=== PATIENT | male | born 1975 | race African-American/Black ===

== ENCOUNTER 2017-03-09 12:38 | Inpatient (IN) | payer SELFPAY ==
[2017-03-09] VITALS (8 sets, daily range): BP systolic 103–134; BP diastolic 56–72; PULSE 90–100; RESP 15–18; TEMP 100.4–103; O2SAT 93–96
[2017-03-09] MEDS ORDERED: SODIUM CHLOR 0.9% 1000 ML INJ 1,000 ML IV ONE (13:00)
[2017-03-09] MEDS ORDERED: ACETAMINOPHEN 325 MG TAB PO ONE (13:00)
--- NOTE | 2017-03-09 13:38 | RADRPT ---
EXAM DATE/TIME: 03/09/2017 13:30 [facility] COMPARISON: No previous studies available for comparison. INDICATIONS : Weakness. Fever. RADIATION DOSE: 37.13 CTDIvol (mGy) MEDICAL HISTORY : None SURGICAL HISTORY : None. ENCOUNTER: Initial ACUITY: 3 days PAIN SCALE: 0/10 LOCATION: cranial TECHNIQUE: Multiple contiguous axial images were obtained of the head. Using automated exposure control and adj ustment of the mA and/or kV according to patient size, radiation dose was kept as low as reasonably a chievable to obtain optimal diagnostic quality images. DICOM format image data is available electro nically for review and comparison. FINDINGS: CEREBRUM: The ventricles are normal for age. No evidence of midline shift, mass lesion, hemorrhage or acute in farction. No extra-axial fluid collections are seen. POSTERIOR FOSSA: The cerebellum and brainstem are intact. The 4th ventricle is midline. The cerebellopontine angle i s unremarkable. EXTRACRANIAL: The visualized portion of the orbits is intact. SKULL: The calvaria is intact. No evidence of skull fracture. CONCLUSION: Negative for acute process. Jeremiah Perea MD FACR on March 09, 2017 at 13:36 Board Certified Radiologist. This report was verified electronically.
[2017-03-09 13:47] LABS: AUTOMATED NEUTROPHIL # 6.3 TH/MM3 (1.8-7.7); BASOPHIL % 0.3 % (0.0-2.0); EOSINOPHIL # 0.1 TH/MM3 (0-0.4); EOSINOPHIL % 1.9 % (0.0-4.0); HEMATOCRIT 42.5 % (39.0-51.0); HEMOGLOBIN 14.3 GM/DL (13.0-17.0); LYMPH % 3.3 % (9.0-44.0); LYMPHOCYTE # 0.2 TH/MM3 (1.0-4.8); MEAN CELL VOLUME 86.8 FL (80.0-100.0); MEAN CORPUSCULAR HEMOGLOBIN 29.2 PG (27.0-34.0); MEAN CORPUSCULAR HGB CONC 33.6 % (32.0-36.0); MEAN PLATELET VOLUME 8.5 FL (7.0-11.0); MONO % 5.4 % (0.0-8.0); MONOCYTE # 0.4 TH/MM3 (0-0.9); NEUT % 89.1 % (16.0-70.0); PLATELET COUNT 153 TH/MM3 (150-450); RED CELL DISTRIBUTION WIDTH 14.9 % (11.6-17.2)
--- NOTE | 2017-03-09 13:53 | PD ---
HPI Chief Complaint: Cold / Flu Symptoms Time Seen by Provider: 12:45 Travel History International Travel<30 days: No Contact w/Intl Traveler<30days: No Traveled to known affect area: No History of Present Illness HPI 42-year-old male that presents to the ED for evaluation of cold-like symptoms and fever. Per patient she's had this for about 4 days now. Per patient he progressively getting worse and she is having body aches. The patient is also having joint pain and specifically the main joints including the chest, shoulders, elbows, wrists, knees, hips and ankles. Patient denies any history of this in the past. He is also noted that he's had a rash that is high be in nature on the torso and back with the same duration of symptoms. He also states having a stiff neck. He denies any sick contacts. He states having had all his exudations as a child. He isn't taking anything for the fever today. He was seen at urgent care and had a flu test that was negative and was sent here for evaluation of possible myositis. He denies any other medical issues. Per patient the rash itself is itchy and not painful. Per patient he discomfort at the time is 7 out of 10 but mainly of the joints. All throughout. No history of this in the past. No other medical problems reported. No recent travel or foods. Nothing that could elicit the rash. PFSH Past Medical History Medical History: Denies Significant Hx Diminished Hearing: No Tetanus Vaccination: > 5 Years Influenza Vaccination: Yes Past Surgical History Surgical History: No Previous Surgery Social History Alcohol Use: No Tobacco Use: No Substance Use: No Allergies-Medications (Allergen,Severity, Reaction): Coded Allergies: No Known Allergies (Unverified , 03/09/17) Reported Meds & Prescriptions Reported Meds & Active Scripts Active No Active Prescriptions or Reported Medications Review of Systems Except as stated in HPI: all other systems reviewed are Neg Physical Exam Narrative GENERAL: SKIN: Warm and dry. Patient has a high be looking rash that is blanchable and pruritic on the chest and torso. Not really noted anywhere else. HEAD: Atraumatic. Normocephalic. EYES: Pupils equal and round. No scleral icterus. No injection or drainage. ENT: No nasal bleeding or discharge. Mucous membranes pink and moist. Tongue is midline. No uvula deviation. No lymphadenopathy noted. Patient does have some reproducible pain with movement of the neck especially from the chin to the chest. No other meningeal signs noted. Tonsils are not enlarged or swollen. Nostrils are patent bilaterally with some mucus noted. NECK: Trachea midline. No JVD. CARDIOVASCULAR: Regular rate and rhythm. No murmurs, S3, S4. RESPIRATORY: No accessory muscle use. Clear to auscultation. Breath sounds equal bilaterally. GASTROINTESTINAL: Abdomen soft, non-tender, nondistended. Hepatic and splenic margins not palpable. MUSCULOSKELETAL: Extremities without clubbing, cyanosis, or edema. No obvious deformities. Full range of motion of the upper and lower extremities bilaterally. 2+ pulses bilaterally. NEUROLOGICAL: Awake and alert. No obvious cranial nerve deficits. Motor grossly within normal limits. Five out of 5 muscle strength in the arms and legs. Normal speech. PSYCHIATRIC: Appropriate mood and affect; insight and judgment normal. Data Data Last Documented VS Vital Signs Date Time Temp Pulse Resp B/P (MAP) Pulse Ox O2 Delivery O2 Flow Rate FiO2 03/09/17 14:25 102.8 95 16 95 Room Air Orders Orders Complete Blood Count With Diff (03/09/17 12:55) Basic Metabolic Panel (Bmp) (03/09/17 12:55) Blood Culture (03/09/17 12:55) Urinalysis - C+S If Indicated (03/09/17 12:55) Magnesium (Mg) (03/09/17 12:55) Group A Rapid Strep Screen (03/09/17 12:55) Influenzae A/B Antigen (03/09/17 12:55) Chest, Single Ap (03/09/17 12:55) Ct Brain W/O Iv Contrast(Rout) (03/09/17 12:55) Iv Access Insert/Monitor (03/09/17 12:55) Ecg Monitoring (03/09/17 12:55) Oximetry (03/09/17 12:55) Lactic Acid Sepsis Protocol (03/09/17 12:55) Acetaminophen (Tylenol) (03/09/17 13:00) Sodium Chlor 0.9% 1000 Ml Inj (Ns 1000 M (03/09/17 13:00) Monoscreen (03/09/17 13:47) Coag Profile (03/09/17 13:47) Strep Culture (Group A) (03/09/17 13:20) Ceftriaxone Inj (Rocephin Inj) (03/09/17 15:00) Azithromycin Inj (Zithromax Inj) (03/09/17 15:00) Admit Order (Ed Use Only) (03/09/17 15:43) Labs Laboratory Tests Test 03/09/17 13:20 03/09/17 13:30 03/09/17 13:50 03/09/17 14:15 White Blood Count 7.0 TH/MM3 Red Blood Count 4.90 MIL/MM3 Hemoglobin 14.3 GM/DL Hematocrit 42.5 % Mean Corpuscular Volume 86.8 FL Mean Corpuscular Hemoglobin 29.2 PG Mean Corpuscular Hemoglobin Concent 33.6 % Red Cell Distribution Width 14.9 % Platelet Count 153 TH/MM3 Mean Platelet Volume 8.5 FL Neutrophils (%) (Auto) 89.1 % Lymphocytes (%) (Auto) 3.3 % Monocytes (%) (Auto) 5.4 % Eosinophils (%) (Auto) 1.9 % Basophils (%) (Auto) 0.3 % Neutrophils # (Auto) 6.3 TH/MM3 Lymphocytes # (Auto) 0.2 TH/MM3 Monocytes # (Auto) 0.4 TH/MM3 Eosinophils # (Auto) 0.1 TH/MM3 Basophils # (Auto) 0.0 TH/MM3 CBC Comment DIFF FINAL Differential Comment Blood Urea Nitrogen 15 MG/DL Creatinine 1.55 MG/DL Random Glucose 95 MG/DL Calcium Level 8.3 MG/DL Magnesium Level 1.7 MG/DL Sodium Level 132 MEQ/L Potassium Level 4.0 MEQ/L Chloride Level 101 MEQ/L Carbon Dioxide Level 24.4 MEQ/L Anion Gap 7 MEQ/L Estimat Glomerular Filtration Rate 60 ML/MIN Lactic Acid Level 1.3 mmol/L Prothrombin Time 11.3 SEC Prothromb Time International Ratio 1.1 RATIO Activated Partial Thromboplast Time 29.2 SEC Monoscreen NEG Urine Color YELLOW Urine Turbidity CLEAR Urine pH 5.5 Urine Specific [place] 1.007 Urine Protein NEG mg/dL Urine Glucose (UA) NEG mg/dL Urine Ketones NEG mg/dL Urine Occult Blood NEG Urine Nitrite NEG Urine Bilirubin NEG Urine Urobilinogen LESS THAN 2.0 MG/DL Urine Leukocyte Esterase NEG Urine WBC 1 /hpf Microscopic Urinalysis Comment CULT NOT INDICATED MDM Medical Decision Making Medical Screen Exam Complete: Yes Emergency Medical Condition: Yes Medical Record Reviewed: Yes Interpretation(s) CBC & BMP Diagram 03/09/17 13:20 Calcium Level 8.3 L, Magnesium Level 1.[address] 03/09/17 1255 Signed Impressions: Service Date/Time: Thursday, March 09, 2017 13:30 - CONCLUSION: Negative for acute process. Jeremiah Perea MD FACR Chest X-Ray 03/09/17 1255 Signed Impressions: Service Date/Time: Thursday, March 09, 2017 13:16 - CONCLUSION: Right midlung airspace disease. Fidel Hernández MD strep negative mono negative UA negative lactic WNL Differential Diagnosis Strep throat versus mononucleosis versus meningitis versus viral illness versus sepsis versus influenza versus pneumonia versus fever of unknown source versus normal exam Narrative Course 42-year-old male that presents to the ED for evaluation of fever and joint pain. Patient was properly examined and was found to have signs and symptoms consistent with appears to be fever. Unclear etiology at this time with definite concern for meningitis. My attending Dr. Agosto as well as the patient with me and agrees with plan. She recommends getting CT of the head as well as coags this patient will require LP which she agreed to proceed with. We 'll wait for labs and imaging before doing the LP however. Patient was given Tylenol for the pain and high fever. Labs and imaging showed what appears to be pneumonia. Patient still has a high fever. My attending Dr. Agosto evaluated the patient with me and recommends admission for pneumonia. HEPAS was paged. Dr Kilgore agrees to admission. Sepsis Criteria SIRS Criteria (2 or more): Temp > 100.9 or < 96.8, Heart rate over 90 Sepsis Criteria (SIRS+source): Infect source susp/known Criteria Outcome: Meets sepsis criteria Diagnosis Primary Impression: Pneumonia Qualified Codes: J18.1 - Lobar pneumonia, unspecified organism Additional Impression: Sepsis Qualified Codes: A41.9 - Sepsis, unspecified organism Admitting Information Admitting Physician Requests: Admit Scripts No Active Prescriptions or Reported Meds Raleigh Hartman Mar 09, 2017 13:53
--- NOTE | 2017-03-09 14:13 | RADRPT ---
EXAM DATE/TIME: 03/09/2017 13:16 [facility] COMPARISON: No previous studies available for comparison. INDICATIONS : Fever, chills, shortness of breath. MEDICAL HISTORY : None. SURGICAL HISTORY : None. ENCOUNTER: Initial ACUITY: 3 days PAIN SCORE: 8/10 LOCATION: Bilateral chest FINDINGS: A single view of the chest demonstrates bandlike airspace disease in the right midlung Left lung is clear. Heart and mediastinal structures are unremarkable. CONCLUSION: Right midlung airspace disease. Fidel Hernández MD on March 09, 2017 at 14:10 Board Certified Radiologist. This report was verified electronically.
[2017-03-09 14:14] LABS: BICARBONATE 24.4 MEQ/L (21.0-32.0); CALCIUM 8.3 MG/DL (8.5-10.1); CREATININE 1.55 MG/DL (0.60-1.30); MAGNESIUM 1.7 MG/DL (1.5-2.5)
[2017-03-09 14:29] LABS: INTERNATIONAL NORMALIZED RATIO 1.1 RATIO; PROTHROMBIN TIME - PATIENT 11.3 SEC (9.8-11.6)
[2017-03-09 14:34] LABS: MONOSCREEN NEG (NEG)
[2017-03-09 14:36] LABS: BILIRUBIN, URINE NEG (NEG); BLOOD, URINE NEG (NEG); GLUCOSE,URINE NEG (NEG); KETONE, URINE NEG (NEG); NITRITE,URINE NEG (NEG); PH, URINE 5.5 (5.0-8.5); URINE COLOR YELLOW (YELLW/STRAW); URINE LEUKOCYTE ESTERASE NEG (NEG)
[2017-03-09] MEDS ORDERED: cefTRIAXone INJ 1,000 MG in SODIUM CHLORIDE 0.9% INJ 100 ML IV ONE (15:00)
[2017-03-09] MEDS ORDERED: AZITHROMYCIN INJ 500 MG in SODIUM CHLOR 0.9% 250 ML INJ 250 ML IV ONE (15:00)
[2017-03-09] MEDS ORDERED: KETOROLAC TROMETHAMINE 30 MG/ML (IVP) VIAL IV PUSH ONE (16:30)
[2017-03-09] MEDS: SODIUM CHLOR 0.9% 1000 ML INJ 1,000 ML IV SCH (16:48)
[2017-03-09] MEDS ORDERED: AZITHROMYCIN INJ 500 MG in SODIUM CHLOR 0.9% 250 ML INJ 250 ML IV SCH (17:00)
[2017-03-09] MEDS ORDERED: cefTRIAXone INJ 1,000 MG in SODIUM CHLORIDE 0.9% INJ 100 ML IV SCH (17:00)
[2017-03-09] MEDS ORDERED: SODIUM CHLORIDE 0.9% FLUSH 10 ML FLUSH IV FLUSH PRN (17:00)
[2017-03-09] MEDS ORDERED: guaiFENesin/DEXTROMETHORPHAN 200 MG/20 MG/10 ML CUP PO PRN (17:00)
[2017-03-09] MEDS ORDERED: RESP: ALBUTEROL 2.5 MG/IPRATROPIUM 0.5 MG NEB (PRN) INH (17:00)
[2017-03-09] MEDS ORDERED: ONDANSETRON HCL 4 MG/2 ML VIAL IV PUSH PRN (17:00)
--- NOTE | 2017-03-09 17:38 | PD ---
Physical Exam Date Seen by Provider: Mar 09, 2017 Time Seen by Provider: 16:30 Narrative I'm seeing this patient with Raleigh Hartman PA-C. This is a patient that presents with cold and flu symptoms. He was initially seen at an urgent care with a did an influenza test and sent him here because he had continued fever and a rash. The patient reports body aches and myalgias. The patient also has a temperature of 103.. There are no ill contacts. There are no mental status changes. Data Data Last Documented VS Vital Signs Date Time Temp Pulse Resp B/P (MAP) Pulse Ox O2 Delivery O2 Flow Rate FiO2 03/09/17 14:25 102.8 95 16 95 Room Air Orders Orders Complete Blood Count With Diff (03/09/17 12:55) Basic Metabolic Panel (Bmp) (03/09/17 12:55) Blood Culture (03/09/17 12:55) Urinalysis - C+S If Indicated (03/09/17 12:55) Magnesium (Mg) (03/09/17 12:55) Group A Rapid Strep Screen (03/09/17 12:55) Influenzae A/B Antigen (03/09/17 12:55) Chest, Single Ap (03/09/17 12:55) Ct Brain W/O Iv Contrast(Rout) (03/09/17 12:55) Iv Access Insert/Monitor (03/09/17 12:55) Ecg Monitoring (03/09/17 12:55) Oximetry (03/09/17 12:55) Lactic Acid Sepsis Protocol (03/09/17 12:55) Acetaminophen (Tylenol) (03/09/17 13:00) Sodium Chlor 0.9% 1000 Ml Inj (Ns 1000 M (03/09/17 13:00) Monoscreen (03/09/17 13:47) Coag Profile (03/09/17 13:47) Strep Culture (Group A) (03/09/17 13:20) Ceftriaxone Inj (Rocephin Inj) (03/09/17 15:00) Azithromycin Inj (Zithromax Inj) (03/09/17 15:00) Admit Order (Ed Use Only) (03/09/17 15:43) Labs Laboratory Tests Test 03/09/17 13:20 03/09/17 13:30 03/09/17 13:50 03/09/17 14:15 White Blood Count 7.0 TH/MM3 Red Blood Count 4.90 MIL/MM3 Hemoglobin 14.3 GM/DL Hematocrit 42.5 % Mean Corpuscular Volume 86.8 FL Mean Corpuscular Hemoglobin 29.2 PG Mean Corpuscular Hemoglobin Concent 33.6 % Red Cell Distribution Width 14.9 % Platelet Count 153 TH/MM3 Mean Platelet Volume 8.5 FL Neutrophils (%) (Auto) 89.1 % Lymphocytes (%) (Auto) 3.3 % Monocytes (%) (Auto) 5.4 % Eosinophils (%) (Auto) 1.9 % Basophils (%) (Auto) 0.3 % Neutrophils # (Auto) 6.3 TH/MM3 Lymphocytes # (Auto) 0.2 TH/MM3 Monocytes # (Auto) 0.4 TH/MM3 Eosinophils # (Auto) 0.1 TH/MM3 Basophils # (Auto) 0.0 TH/MM3 CBC Comment DIFF FINAL Differential Comment Blood Urea Nitrogen 15 MG/DL Creatinine 1.55 MG/DL Random Glucose 95 MG/DL Calcium Level 8.3 MG/DL Magnesium Level 1.7 MG/DL Sodium Level 132 MEQ/L Potassium Level 4.0 MEQ/L Chloride Level 101 MEQ/L Carbon Dioxide Level 24.4 MEQ/L Anion Gap 7 MEQ/L Estimat Glomerular Filtration Rate 60 ML/MIN Lactic Acid Level 1.3 mmol/L Prothrombin Time 11.3 SEC Prothromb Time International Ratio 1.1 RATIO Activated Partial Thromboplast Time 29.2 SEC Monoscreen NEG Urine Color YELLOW Urine Turbidity CLEAR Urine pH 5.5 Urine Specific [place] 1.007 Urine Protein NEG mg/dL Urine Glucose (UA) NEG mg/dL Urine Ketones NEG mg/dL Urine Occult Blood NEG Urine Nitrite NEG Urine Bilirubin NEG Urine Urobilinogen LESS THAN 2.0 MG/DL Urine Leukocyte Esterase NEG Urine WBC 1 /hpf Microscopic Urinalysis Comment CULT NOT INDICATED MDM Medical Record Reviewed: Yes Supervised Visit with HARRY: Yes Narrative Course 42-year-old male presents with fever body aches rash headache. Patient also had mild stiff neck. The patient is nontoxic-appearing. Initially the concern was this could be meningitis. We did send off a repeat influenza, mono, strep test which were all negative. Chest x-ray reveals a right middle lobe infiltrate. The patient's white blood cell count was within normal limits. This likely could be a viral pneumonia however we will admit him to the hospital for IVD antibiotics and fever control. Case was discussed with both patient and his and they're amenable. Given his rash, this likely is viral in etiology. At this point a lumbar puncture is not indicated. Diagnosis Primary Impression: Pneumonia Qualified Codes: J18.1 - Lobar pneumonia, unspecified organism Additional Impression: Sepsis Qualified Codes: A41.9 - Sepsis, unspecified organism Admitting Information Admitting Physician Requests: Admit Scripts No Active Prescriptions or Reported Meds Adryan Agosto MD Mar 09, 2017 17:38
[2017-03-09] MEDS ORDERED: ACETAMINOPHEN/HYDROcodone 325 MG/5 MG TAB PO PRN (18:45)
[2017-03-09] MEDS: HEPARIN SODIUM - SQ 10,000 UNITS/ML VIAL SQ SCH (19:15)
--- NOTE | 2017-03-09 19:38 | HHI.HP ---
[facility] No Primary Care Physician Admission Diagnosis acute pneumonia, sepsis Diagnoses: Chief Complaint: Fever and skin rash Travel History International Travel<30 Days: No Contact w/Intl Traveler <30 Da: No Traveled to Known Affected Are: No History of Present Illness 42 years old patient admitted with flulike symptoms fever and papular rash on the chest and the back, patient went to urgent care he was check for flu which was negative he also reported body aching and myalgia no change in mental status is fever was 103 documented here in ED patient denied chest in coughing headache blurry vision, nausea vomiting diarrhea, dysuria urgency or frequency, he denied recent traveling or sick contacts Past Family Social History Past Medical History Denied any medical history Past Surgical History Denied previous surgery Allergies: Coded Allergies: No Known Allergies (Unverified , 03/09/17) Family History Reviewed unremarkable Social History Denied tobacco alcohol or illicit drug abuse Physical Exam Vital Signs Vital Signs Date Time Temp Pulse Resp B/P (MAP) Pulse Ox O2 Delivery O2 Flow Rate FiO2 03/09/17 18:00 101.5 100 17 103/56 (72) 95 03/09/17 17:16 103.0 101 16 130/72 (91) 96 03/09/17 16:59 94 21 03/09/17 16:21 103.0 98 15 134/70 (91) 96 Room Air 03/09/17 14:25 102.8 95 16 95 Room Air 03/09/17 14:25 102.8 92 16 96 Room Air 03/09/17 12:53 15 99 Room Air 03/09/17 12:40 103.0 96 16 122/68 (86) 95 Physical Exam GENERAL: This is a well-nourished, well-developed patient, in no apparent distress. SKIN: None itching papular rash some of it has pustular look, also distributed on the back HEAD: Atraumatic. Normocephalic. EYES: Pupils equal round and reactive. Extraocular motions intact. No scleral icterus. ENT: Nose without bleeding, or drainage, Airway patent. NECK: Trachea midline. Supple CARDIOVASCULAR: Regular rate and rhythm without murmurs, gallops, or rubs. RESPIRATORY: Fair air entry bilaterally. No wheezes, rales, or rhonchi. GASTROINTESTINAL: Abdomen soft, non-tender, nondistended. Positive bowel sounds MUSCULOSKELETAL: Extremities without clubbing, cyanosis, or edema. Pedal pulses appreciated NEUROLOGICAL: Awake and alert. Moves all extremity. Normal speech.no focal neurological deficit Laboratory Laboratory Tests Test 03/09/17 13:20 03/09/17 13:30 03/09/17 13:50 03/09/17 14:15 White Blood Count 7.0 Red Blood Count 4.90 Hemoglobin 14.3 Hematocrit 42.5 Mean Corpuscular Volume 86.8 Mean Corpuscular Hemoglobin 29.2 Mean Corpuscular Hemoglobin Concent 33.6 Red Cell Distribution Width 14.9 Platelet Count 153 Mean Platelet Volume 8.5 Neutrophils (%) (Auto) 89.1 Lymphocytes (%) (Auto) 3.3 Monocytes (%) (Auto) 5.4 Eosinophils (%) (Auto) 1.9 Basophils (%) (Auto) 0.3 Neutrophils # (Auto) 6.3 Lymphocytes # (Auto) 0.2 Monocytes # (Auto) 0.4 Eosinophils # (Auto) 0.1 Basophils # (Auto) 0.0 CBC Comment DIFF FINAL Differential Comment Blood Urea Nitrogen 15 Creatinine 1.55 Random Glucose 95 Calcium Level 8.3 Magnesium Level 1.7 Sodium Level 132 Potassium Level 4.0 Chloride Level 101 Carbon Dioxide Level 24.4 Anion Gap 7 Estimat Glomerular Filtration Rate 60 Lactic Acid Level 1.3 Prothrombin Time 11.3 Prothromb Time International Ratio 1.1 Activated Partial Thromboplast Time 29.2 Monoscreen NEG Urine Color YELLOW Urine Turbidity CLEAR Urine pH 5.5 Urine Specific [place] 1.007 Urine Protein NEG Urine Glucose (UA) NEG Urine Ketones NEG Urine Occult Blood NEG Urine Nitrite NEG Urine Bilirubin NEG Urine Urobilinogen LESS THAN 2.0 Urine Leukocyte Esterase NEG Urine WBC 1 Microscopic Urinalysis Comment CULT NOT INDICATED Date/Time Source Procedure Growth Status 03/09/17 13:30 Blood Peripheral Aerobic Blood Culture Pending Received 03/09/17 13:30 Blood Peripheral Anaerobic Blood Culture Pending Received 03/09/17 14:00 Nasal Washing Influenza Types A,B Antigen ([facility]) - Final NEGATIVE FOR FLU A AND B ANTIGEN.... Complete Result Diagram: 03/09/17 1320 03/09/17 1320 Imaging Last Impressions Liver Ultrasound 03/10/17 0000 Signed Impressions: Service Date/Time: Friday, March 10, 2017 12:35 - CONCLUSION: Negative study Kaleb Hirsch MD Head CT 03/09/17 1255 Signed Impressions: Service Date/Time: Thursday, March 09, 2017 13:30 - CONCLUSION: Negative for acute process. Jeremiah Perea MD FACR Chest X-Ray 03/09/17 1255 Signed Impressions: Service Date/Time: Thursday, March 09, 2017 13:16 - CONCLUSION: Right midlung airspace disease. Fidel Hernández MD Caprini VTE Risk Assessment Caprini VTE Risk Assessment: No/Low Risk (score <= 1) Caprini Risk Assessment Model Point Value = 1 Point Value = 2 Point Value = 3 Point Value = 5 Age 41-60 Minor surgery BMI > 25 kg/m2 Swollen legs Varicose veins or History of unexplained or recurrent spontaneous Oral contraceptives or hormone replacement Sepsis (< 1 month) Serious lung disease, including pneumonia (< 1 month) Abnormal pulmonary function Acute myocardial infarction Congestive heart failure (< 1 month) History of inflammatory bowel disease Medical patient at bed rest Age 61-74 Arthroscopic surgery Major open surgery (> 45 min) Laparoscopic surgery (> 45 min) Malignancy Confined to bed (> 72 hours) Immobilizing plaster cast Central venous access Age >= 75 History of VTE Family history of VTE Factor V Leiden Prothrombin [id number] Lupus anticoagulant Anticardiolipin antibodies Elevated serum homocysteine Heparin-induced thrombocytopenia Other congenital or acquired thrombophilia Stroke (< 1 month) Elective arthroplasty Hip, pelvis, or leg fracture Acute spinal cord injury (< 1 month) Prophylaxis Regimen Total Risk Factor Score Risk Level Prophylaxis Regimen 0-1 Low Early ambulation 2 Moderate Order ONE of the following: *Sequential Compression Device (SCD) *Heparin 5000 units SQ BID 3-4 Higher Order ONE of the following medications: *Heparin 5000 units SQ TID *Enoxaparin/Lovenox 40 mg SQ daily (WT < 150 kg, CrCl > 30 mL/min) *Enoxaparin/Lovenox 30 mg SQ daily (WT < 150 kg, CrCl > 10-29 mL/min) *Enoxaparin/Lovenox 30 mg SQ BID (WT < 150 kg, CrCl > 30 mL/min) AND/OR *Sequential Compression Device (SCD) 5 or more Highest Order ONE of the following medications: *Heparin 5000 units SQ TID (Preferred with Epidurals) *Enoxaparin/Lovenox 40 mg SQ daily (WT < 150 kg, CrCl > 30 mL/min) *Enoxaparin/Lovenox 30 mg SQ daily (WT < 150 kg, CrCl > 10-29 mL/min) *Enoxaparin/Lovenox 30 mg SQ BID (WT < 150 kg, CrCl > 30 mL/min) AND *Sequential Compression Device (SCD) Assessment and Plan Assessment and Plan 42 years old male with admitted with Febrile illness with skin rash max 103, chest x-ray showed right middle lobe airspace disease, no significant respiratory symptoms, plan was to do LP in ED until the result of the chest x- ray came, started on Rocephin and Zithromax, will continue and monitor Patient has no leukocytosis but positive left shift, will check ESR CRP, lactic acid flu screening was negative, will monitor his clinical course. Febrile illness with skin rash possibly due to pneumonia rule out other etiology Right sided pneumonia on x-ray Left shift JULIAN DVT prophylaxis Plan: Admit on telemetry rule out sepsis Sent for panculture Urine antigen for Legionella and pneumococcus Start Rocephin and Zithromax Breathing treatment as needed ESR CRP Reviewed x-ray personally Monitor skin rash on the clinical symptoms VT prophylaxis with heparin and SCD Physician Certification 2 Midnight Certification Type: Admission for Inpatient Services Order for Inpatient Services The services are ordered in accordance with Medicare regulations or non- Medicare payer requirements, as applicable. In the case of services not specified as inpatient-only, they are appropriately provided as inpatient services in accordance with the 2-midnight benchmark. Estimated LOS (days): 2 days is the estimated time the patient will need to remain in the hospital, assuming treatment plan goals are met and no additional complications. Post-Hospital Plan: Not yet determined Virgil Kilgore MD Mar 09, 2017 19:38
[2017-03-09] MEDS: SODIUM CHLORIDE 0.9% FLUSH 10 ML FLUSH IV FLUSH SCH (21:00)
[2017-03-09] MEDS: RESP: ALBUTEROL 2.5 MG/IPRATROPIUM 0.5 MG NEB (SCH) INH (21:26)
[2017-03-10] VITALS (11 sets, daily range): BP systolic 114–135; BP diastolic 61–73; PULSE 90–110; RESP 18–20; TEMP 98.9–103.5; O2SAT 91–97
[2017-03-10] MEDS: ACETAMINOPHEN 325 MG TAB PO PRN ×4 (00:32→21:23)
[2017-03-10] MEDS: HEPARIN SODIUM - SQ 10,000 UNITS/ML VIAL SQ SCH ×3 (00:32→16:17)
[2017-03-10] MEDS: SODIUM CHLOR 0.9% 1000 ML INJ 1,000 ML IV SCH ×3 (02:43→21:24)
[2017-03-10] MEDS: RESP: ALBUTEROL 2.5 MG/IPRATROPIUM 0.5 MG NEB (SCH) INH ×3 (03:07→21:33)
[2017-03-10] MEDS: ACETAMINOPHEN/HYDROcodone 325 MG/7.5 MG TAB PO PRN ×2 (07:48→13:05)
[2017-03-10] MEDS: SODIUM CHLORIDE 0.9% FLUSH 10 ML FLUSH IV FLUSH SCH ×2 (07:49→21:22)
[2017-03-10] MEDS ORDERED: cefTRIAXone INJ 1,000 MG in SODIUM CHLORIDE 0.9% INJ 100 ML IV SCH (09:00)
[2017-03-10] MEDS ORDERED: AZITHROMYCIN INJ 500 MG in SODIUM CHLOR 0.9% 250 ML INJ 250 ML IV SCH (09:00)
[2017-03-10 09:12] LABS: AUTOMATED NEUTROPHIL # 5.6 TH/MM3 (1.8-7.7); BASOPHIL % 0.1 % (0.0-2.0); EOSINOPHIL # 0.2 TH/MM3 (0-0.4); EOSINOPHIL % 2.4 % (0.0-4.0); HEMATOCRIT 36.1 % (39.0-51.0); HEMOGLOBIN 12.6 GM/DL (13.0-17.0); LYMPH % 2.6 % (9.0-44.0); LYMPHOCYTE # 0.2 TH/MM3 (1.0-4.8); MEAN CELL VOLUME 85.1 FL (80.0-100.0); MEAN CORPUSCULAR HEMOGLOBIN 29.7 PG (27.0-34.0); MEAN CORPUSCULAR HGB CONC 34.9 % (32.0-36.0); MEAN PLATELET VOLUME 8.3 FL (7.0-11.0); MONO % 5.9 % (0.0-8.0); MONOCYTE # 0.4 TH/MM3 (0-0.9); PLATELET COUNT 133 TH/MM3 (150-450); RED BLOOD COUNT 4.24 MIL/MM3 (4.50-5.90); RED CELL DISTRIBUTION WIDTH 14.3 % (11.6-17.2); WHITE BLOOD COUNT 6.3 TH/MM3 (4.0-11.0)
[2017-03-10 09:32] LABS: ALBUMIN 2.6 GM/DL (3.4-5.0)
[2017-03-10 09:35] LABS: DIRECT BILIRUBIN ADULT 0.7 MG/DL (0.0-0.2); INDIRECT BILIRUBIN 1.4 MG/DL (0.0-0.8); TOTAL BILIRUBIN ADULT 2.1 MG/DL (0.2-1.0); TOTAL PROTEIN 6.4 GM/DL (6.4-8.2)
[2017-03-10 12:45] LABS: BICARBONATE 20.2 MEQ/L (21.0-32.0); C-REACTIVE PROTEIN 9.1 MG/DL (0.00-0.30); CALCIUM 7.7 MG/DL (8.5-10.1); CREATININE 1.43 MG/DL (0.60-1.30)
--- NOTE | 2017-03-10 13:31 | RADRPT ---
EXAM DATE/TIME: 03/10/2017 12:35 [facility] COMPARISON: No previous studies available for comparison. EXTERNAL COMPARISON : [facility], CT Abdomen and Pelvis, December 25, 2016 INDICATIONS : Abnormal lab values. MEDICAL HISTORY : Renal disease. SURGICAL HISTORY : None. ENCOUNTER: Initial ACUITY: 1 day PAIN SCORE: 0/10 LOCATION: Abdomen. MEASUREMENTS: LIVER: 13.5 cm length COMMON DUCT: 5 mm RIGHT KIDNEY: 9.7 x 4.1 x 4.1 cm SPLEEN: 6.4 cm length FINDINGS: LIVER: Normal echotexture without focal lesion or ductal dilatation. COMMON DUCT: No intraluminal mass or stone visualized. GALLBLADDER: Contains no stones, demonstrates no wall thickening or pericholecystic fluid. PANCREAS: The visualized portions are within normal limits. RIGHT KIDNEY: No hydronephrosis, stone or mass. SPLEEN: No focal lesion. CONCLUSION: Negative study Kaleb Hirsch MD on March 10, 2017 at 13:28 Board Certified Radiologist. This report was verified electronically.
[2017-03-10] MEDS ORDERED: PIPERACIL-TAZO 4.5 GM PREMIX 100 ML IV SCH (14:00)
--- NOTE | 2017-03-10 15:47 | HHI.PR ---
Subjective Remarks Patient has been still running fever, between 100 101 He feels chills, no significant cough no headache no blurry vision, no diarrhea Bilirubin came elevated today, no significant clinical jaundice, I will check ultrasound of the liver and carefully monitor his temperature, I will add Zosyn and consult ID Objective Vitals Vital Signs Date Time Temp Pulse Resp B/P (MAP) Pulse Ox O2 Delivery O2 Flow Rate FiO2 03/10/17 12:00 98.9 90 18 115/63 (80) 96 03/10/17 10:16 95 Nasal Cannula 1.00 03/10/17 08:19 99.7 110 94 03/10/17 08:16 94 3.00 03/10/17 08:00 102.1 100 20 135/73 (93) 93 03/10/17 04:29 99.7 109 18 120/61 (80) 93 03/10/17 03:09 95 03/10/17 02:10 100.2 03/10/17 00:00 102.5 105 18 121/64 (83) 94 03/09/17 21:26 93 21 03/09/17 20:00 100.4 90 18 107/61 (76) 95 03/09/17 18:00 101.5 100 17 103/56 (72) 95 03/09/17 17:16 103.0 101 16 130/72 (91) 96 03/09/17 16:59 94 21 03/09/17 16:21 103.0 98 15 134/70 (91) 96 Room Air I/O 03/09/17 03/09/17 03/09/17 03/10/17 03/10/17 03/10/17 07:00 15:00 23:00 07:00 15:00 23:00 Intake Total 1000 ml 410 ml 1000 ml Balance 1000 ml 410 ml 1000 ml Intake Oral 60 ml IV Total 1000 ml 350 ml 1000 ml # Voids 0 1 # Bowel Movements 0 Result Diagram: 03/10/17 0850 03/10/17 0850 Objective Remarks GENERAL: This is a well-nourished, well-developed patient, in no apparent distress. SKIN: Multiple rounded creatinine at this papular skin rash no clearance anywhere, feeling uncomfortable on the chest on the back and some on the upper arms HEAD: Atraumatic. Normocephalic. EYES: Pupils equal round and reactive. Extraocular motions intact. No scleral icterus. ENT: Nose without bleeding, or drainage, Airway patent. NECK: Trachea midline. Supple CARDIOVASCULAR: Regular rate and rhythm without murmurs, gallops, or rubs. RESPIRATORY: Fair air entry bilaterally. No wheezes, rales, or rhonchi. GASTROINTESTINAL: Abdomen soft, non-tender, nondistended. Positive bowel sounds MUSCULOSKELETAL: Extremities without clubbing, cyanosis, or edema. Pedal pulses appreciated NEUROLOGICAL: Awake and alert. Moves all extremity. Normal speech.no focal neurological deficit A/P Assessment and Plan 42 years old male with admitted with Febrile illness with skin rash max 103, chest x-ray showed right middle lobe airspace disease, no significant respiratory symptoms, plan was to do LP in ED until the result of the chest x- ray came, started on Rocephin and Zithromax, will continue and monitor Patient has no leukocytosis but positive left shift, will check ESR CRP, lactic acid flu screening was negative, will monitor his clinical course. Febrile illness with skin rash possibly due to right sided pneumonia Right sided pneumonia on chest x-ray Increased bilirubin and AST Left shift JULIAN DVT prophylaxis Plan: Check liver ultrasound>> came back negative Add Zosyn, consult ID, we may need to check LP, Follow blood culture Start Rocephin and Zithromax Breathing treatment as needed ESR CRP Reviewed x-ray personally Monitor skin rash on the clinical symptoms VT prophylaxis with heparin and SCD Virgil Kilgore MD Mar 10, 2017 15:47
[2017-03-10] MEDS ORDERED: POTASSIUM CHLORIDE 20 MEQ CONTROLLED RELEASE TAB PO ONE (16:00)
[2017-03-10 18:08] LABS: RHEUMATOID FACTOR SCREEN POSITIVE (NEGATIVE)
[2017-03-10] MEDS: VANCOMYCIN INJ 1,000 MG in SODIUM CHLOR 0.9% 250 ML INJ 250 ML IV SCH (18:49)
--- NOTE | 2017-03-10 20:23 | MB ---
cc: LENO LAINEZ MD DATE OF CONSULTATION 03/10/[address] Kilgore. REASON FOR CONSULTATION Nonresolving fever. HISTORY OF PRESENT ILLNESS This is a 42-year-old black male who presented to the emergency department with cold and flu-like symptoms and persistent fever. The patient reports to me that he started developing achiness of his body all over and then noticed a rash including his legs and abdomen and arms and back which began approximately 4 days ago. The patient spent Toney day away from family members because he was feeling sick. He does not recall being in contact with anyone who has had similar illness. He states that he was having persistent high fever and joint aches and pains. He was seen at Urgent Care facility prior to coming to the emergency department and influenza was done and it was negative. He was noted to have temperature of 102.8 degrees in the emergency department. He denies headache. Denies nausea or vomiting. No sore throat, back pain, dysuria. He notes that he has mild shortness of breath. Chest x-ray was performed and showed right midlung airspace disease. The patient denies cough or sputum production. He was started on IV antibiotics broad-spectrum. Blood cultures from 03/09 have no growth. He was given IV antibiotics yesterday in the form of ceftriaxone and azithromycin. He was also started on piperacillin / tazobactam today. The patient denies any genital discharge. He is . He denies risk factors for HIV disease. He has two children at home and is in a monogamous relationship with his . His maximum temperature was 103 degrees yesterday afternoon. His temperature improved a little and then is back up to 103 degrees now. His white count is normal. Platelet count is low. Liver function tests normal. Urinalysis was performed and is unremarkable. The patient has an erythematous maculopapular rash which is raised and appears as small bumps. It has a slightly purpuric appearance. There are no vesicles but they are very tiny, white pustules on some of the raised bumps. It is diffuse over the back, trunk, arms, legs and chest. There are no lesions on the palm of the hands or soles of the feet. The patient reports that he has had chickenpox in childhood and that he has had all of his childhood immunizations when he was an . The patient denies exposure to unusual pets. He has not traveled outside of [place] lately. He denies tick bites or other insect bites. PAST MEDICAL HISTORY Chicken pox in childhood otherwise unremarkable. ALLERGIES NO KNOWN DRUG ALLERGIES. MEDICATIONS 1. Piperacillin / tazobactam. 2. Ceftriaxone. 3. Azithromycin. 4. Tylenol. 5. DuoNeb. SOCIAL HISTORY The patient is . No tobacco, no alcohol. No illicit drugs. He has two children age 1 and 8 who are in good health. FAMILY HISTORY Noncontributory. REVIEW OF SYSTEMS Pertinents mentioned above in history of present illness. CONSTITUTIONAL: Significant for fever and occasional chills. HEENT: No visual blurring or diplopia. No difficulty swallowing or soreness of the throat. No nasal bleeding or discharge. NECK: No swelling or pain. CARDIOVASCULAR: No palpitation or chest pain. RESPIRATORY: No cough. Mild shortness of breath. GASTROINTESTINAL: No nausea, vomiting, abdominal pain or diarrhea. GENITOURINARY: Denies urgency, frequency or dysuria. MUSCULOSKELETAL: Significant for muscle aches diffusely and also joint aches diffusely. INTEGUMENTARY: Significant for skin rash. NEUROLOGIC: No problem with coordination. PSYCHIATRIC: No mood changes or problems with depression. PHYSICAL EXAMINATION GENERAL: This is a well-developed male who is in no acute distress but he feels uncomfortable from the fever. VITAL SIGNS: Include temperature 103, BP 115/63, heart rate 100, respirations 20. HEENT: The head is atraumatic. Extraocular movements grossly intact, pupils reactive to light. No icterus. Oropharynx moist mucosa. No thrush. No visible lesions. NECK: Supple without adenopathy. LUNGS: Clear breath sounds with slight rhonchi at the bases. HEART: Regular S1-S2. No murmurs, rubs or gallops. ABDOMEN: Bowel sounds present, soft, no tenderness appreciated. No palpable hepatosplenomegaly. RECTAL: Not performed. EXTREMITIES: No clubbing, cyanosis or edema. SKIN: Diffuse maculopapular rash involving the legs, arms, abdomen, pack and chest and neck. NEUROLOGIC: No gross focal findings. PSYCHIATRIC: The patient calm and cooperative. LABORATORY DATA WBC 6.3, platelets 133, hemoglobin 12.6, 89% neutrophils. Sed rate 36. AST 31, ALT 39, total bilirubin 2.1, BUN 14, creatinine 1.43, estimated GFR 66, sodium 137. [place] screen negative. Group A strep antigen screen negative. IMPRESSION Febrile illness with diffuse erythematous rash accompanied by joint aches and muscle aches and pains. Patient with persistent elevation in temperature. Probable viral syndrome versus autoimmune etiology versus post infectious rash and arthritis. The patient also has some renal insufficiency which could be related to post infectious cause as well. He has normal white blood cell count. Abnormal chest x-ray although no clinical evidence of pneumonia and he has had negative influenza test as well. RECOMMENDATIONS 1. Discontinue ceftriaxone. 2. Discontinue piperacillin / tazobactam. 3. Discontinue azithromycin. 4. Begin vancomycin. Sometimes the use of cephalosporins or beta lactam drugs can exacerbate rash due to viral etiology illnesses. 5. Monitor blood cultures. 6. Monitor sputum culture which has been obtained. 7. Obtain LORETA, RF, streptolysin antibody titer. Culture of the pustules from the skin lesions on the back. These are very tiny but can be swabbed for culture. 8. Add Solu-Medrol given the extent of the rash and potential for autoimmune cause and also order RPR titer. Thank you for this consultation. The patient's progress will be monitored along with you and further recommendations will be made on followup if necessary. Leno Lainez MD FD/NATALIA /4:26 PM /7:23 PM WAYNE
[2017-03-10] MEDS: methylPREDNISolone SOD SUCC 40 MG/1 ML VIAL IV PUSH SCH (21:23)
[2017-03-11] VITALS (7 sets, daily range): BP systolic 105–138; BP diastolic 57–84; PULSE 60–94; RESP 16–20; TEMP 96.2–99.9; O2SAT 94–96
[2017-03-11] MEDS: HEPARIN SODIUM - SQ 10,000 UNITS/ML VIAL SQ SCH ×3 (01:00→16:57)
[2017-03-11] MEDS: VANCOMYCIN INJ 1,000 MG in SODIUM CHLOR 0.9% 250 ML INJ 250 ML IV SCH ×2 (04:15→17:04)
[2017-03-11] MEDS: RESP: ALBUTEROL 2.5 MG/IPRATROPIUM 0.5 MG NEB (SCH) INH ×4 (04:23→21:27)
[2017-03-11 05:19] LABS: BICARBONATE 24.3 MEQ/L (21.0-32.0); CALCIUM 8.1 MG/DL (8.5-10.1); CREATININE 1.37 MG/DL (0.60-1.30)
[2017-03-11] MEDS: SODIUM CHLOR 0.9% 1000 ML INJ 1,000 ML IV SCH ×2 (08:48→18:48)
[2017-03-11] MEDS: SODIUM CHLORIDE 0.9% FLUSH 10 ML FLUSH IV FLUSH SCH ×2 (09:00→19:51)
[2017-03-11] MEDS: methylPREDNISolone SOD SUCC 40 MG/1 ML VIAL IV PUSH SCH (09:32)
--- NOTE | 2017-03-11 12:55 | HHI.PR ---
Subjective Remarks Follow up on febrile illness with skin rash and airspace disease on chest x- ray. Patient Still running temperature 103.5 yesterday at 4 PM, he hasn't had a fever since then, he stated he is feeling better, the rash is coming more papular growing without any central clearance, he denied the lesion to be itching or painful however he said it's uncomfortable, he denied any dysuria or any other sexual contact in his partner. Objective Vitals Vital Signs Date Time Temp Pulse Resp B/P (MAP) Pulse Ox O2 Delivery O2 Flow Rate FiO2 03/11/17 12:00 97.8 94 16 126/76 (93) 96 03/11/17 09:40 95 03/11/17 08:30 Room Air 03/11/17 08:00 99.1 78 18 108/57 (74) 94 03/11/17 04:00 98.6 78 20 105/64 (78) 95 03/11/17 00:00 99.9 87 20 108/63 (78) 96 03/10/17 20:00 102.1 96 20 114/64 (81) 97 03/10/17 20:00 Nasal Cannula 2.00 03/10/17 16:00 103.5 108 20 127/68 (87) 91 03/10/17 15:47 96 Nasal Cannula 1.00 I/O 03/10/17 03/10/17 03/10/17 03/11/17 03/11/17 03/11/17 07:00 15:00 23:00 07:00 15:00 23:00 Intake Total 1000 ml 480 ml 800 ml Output Total 500 ml Balance 1000 ml 480 ml 300 ml Intake Oral 480 ml 800 ml IV Total 1000 ml Output Urine Total 500 ml # Voids 1 4 # Bowel Movements 0 0 Result Diagram: 03/10/17 0850 03/11/17 0436 Objective Remarks GENERAL: This is a well-nourished, well-developed patient, in no apparent distress. SKIN: Multiple rounded creatinine at this papular skin rash no clearance anywhere, feeling uncomfortable on the chest on the back and some on the upper arms HEAD: Atraumatic. Normocephalic. EYES: Pupils equal round and reactive. Extraocular motions intact. No scleral icterus. ENT: Nose without bleeding, or drainage, Airway patent. NECK: Trachea midline. Supple CARDIOVASCULAR: Regular rate and rhythm without murmurs, gallops, or rubs. RESPIRATORY: Fair air entry bilaterally. No wheezes, rales, or rhonchi. GASTROINTESTINAL: Abdomen soft, non-tender, nondistended. Positive bowel sounds MUSCULOSKELETAL: Extremities without clubbing, cyanosis, or edema. Pedal pulses appreciated NEUROLOGICAL: Awake and alert. Moves all extremity. Normal speech.no focal neurological deficit A/P Assessment and Plan 42 years old male with admitted with Febrile illness with skin rash max 103, chest x-ray showed right middle lobe airspace disease, no significant respiratory symptoms, plan was to do LP in ED until the result of the chest x- ray came, started on Rocephin and Zithromax, will continue and monitor Patient has no leukocytosis but positive left shift, will check ESR CRP, lactic acid flu screening was negative, will monitor his clinical course. Febrile illness with skin rash possibly due to right sided pneumonia Right sided pneumonia on chest x-ray Increased bilirubin and AST Left shift JULIAN DVT prophylaxis Plan: liver ultrasound>> came back negative Initially started on Zosyn, appreciate ID consultation, started him on vancomycin, Solu-Medrol, check RA, PNA, RPR I will check urine for chlamydia and coronal Follow blood culture Start Rocephin and Zithromax Breathing treatment as needed ESR CRP Reviewed x-ray personally Monitor skin rash on the clinical symptoms VT prophylaxis with heparin and SCD Virgil Kilgore MD Mar 11, 2017 12:55
--- NOTE | 2017-03-11 14:11 | HHI.IDPN ---
Note Infectious Disease Note Patient feels much better. No complaints. Denies chills. Temp better. Leonel to 102 last night. RF positive. RPR - negative. Blood culture has no growth. Anti strep titer negative. . Admitted with cold and flu-like symptoms and persistent fever. Began developing achiness of his body all over and then noticed a rash including his legs and abdomen and arms and back which began approximately 4 days before admission. PAST MEDICAL HISTORY Chicken pox in childhood otherwise unremarkable. ALLERGIES NO KNOWN DRUG ALLERGIES. Current Medications Medications (Trade) Dose Ordered Sig/Rigo Route PRN Reason Start Time Stop Time Status Last Admin Dose Admin Sodium Chloride 1,000 ml @ 100 mls/hr Q10H IV 03/09/17 16:48 03/10/17 21:24 Sodium Chloride (NS Flush) 2 ml UNSCH PRN IV FLUSH FLUSH AFTER USING IV ACCESS 03/09/17 17:00 Sodium Chloride (NS Flush) 2 ml BID IV FLUSH 03/09/17 21:00 03/10/17 21:22 Ondansetron HCl (Zofran Inj) 4 mg Q6H PRN IV PUSH NAUSEA 03/09/17 17:00 Albuterol/ Ipratropium (Duoneb Neb) 1 ampule Q6HR NEB INH 03/09/17 22:00 03/10/17 03:07 Albuterol/ Ipratropium (Duoneb Neb) 1 ampule Q4HR NEB PRN INH SHORTNESS OF BREATH 03/09/17 17:00 Guaifenesin/ Dextromethorphan (Robitussin Dm 200-20 Mg/10 ml Liq) 10 ml Q4H PRN PO COUGH 03/09/17 17:00 Heparin Sodium (Porcine) (Heparin Inj) 5,000 units Q8H SQ 03/09/17 17:00 03/09/17 19:15 Acetaminophen/ Hydrocodone Bitart ([place] 7.5-325 Mg) 1 tab Q4H PRN PO pain 6-10 03/09/17 18:45 03/10/17 13:05 Acetaminophen/ Hydrocodone Bitart ([place] 5-325 Mg) 1 tab Q4H PRN PO pain 3-5 03/09/17 18:45 Acetaminophen (Tylenol) 650 mg Q4HR PRN PO temp > 100.4 03/10/17 00:15 03/10/17 21:23 Vancomycin HCl 1000 mg/Sodium Chloride 250 ml @ 250 mls/hr Q12H IV 03/10/17 17:00 03/11/17 04:15 Methylprednisolone Sodium Succinate (SoluMEDROL INJ) 40 mg Q12HR IV PUSH 03/10/17 21:00 03/11/17 09:32 SOCIAL HISTORY The patient is . No tobacco, no alcohol. No illicit drugs. He has two children age 1 and 8 who are in good health. OBJECTIVE: Vital Signs Date Time Temp Pulse Resp B/P (MAP) Pulse Ox O2 Delivery O2 Flow Rate FiO2 03/11/17 12:00 97.8 94 16 126/76 (93) 96 03/11/17 09:40 95 03/11/17 08:30 Room Air 03/11/17 08:00 99.1 78 18 108/57 (74) 94 03/11/17 04:00 98.6 78 20 105/64 (78) 95 03/11/17 00:00 99.9 87 20 108/63 (78) 96 03/10/17 20:00 102.1 96 20 114/64 (81) 97 03/10/17 20:00 Nasal Cannula 2.00 03/10/17 16:00 103.5 108 20 127/68 (87) 91 03/10/17 15:47 96 Nasal Cannula 1.00 Laboratory Tests Test 03/10/17 08:30 03/10/17 08:50 Erythrocyte Sedimentation Rate 36 mm/hr White Blood Count 6.3 TH/MM3 Red Blood Count 4.24 MIL/MM3 Hemoglobin 12.6 GM/DL Hematocrit 36.1 % Mean Corpuscular Volume 85.1 FL Mean Corpuscular Hemoglobin 29.7 PG Mean Corpuscular Hemoglobin Concent 34.9 % Red Cell Distribution Width 14.3 % Platelet Count 133 TH/MM3 Mean Platelet Volume 8.3 FL Neutrophils (%) (Auto) 89.0 % Lymphocytes (%) (Auto) 2.6 % Monocytes (%) (Auto) 5.9 % Eosinophils (%) (Auto) 2.4 % Basophils (%) (Auto) 0.1 % Neutrophils # (Auto) 5.6 TH/MM3 Lymphocytes # (Auto) 0.2 TH/MM3 Monocytes # (Auto) 0.4 TH/MM3 Eosinophils # (Auto) 0.2 TH/MM3 Basophils # (Auto) 0.0 TH/MM3 CBC Comment DIFF FINAL Differential Comment Laboratory Tests Test 03/10/17 08:50 03/11/17 04:36 Blood Urea Nitrogen 14 MG/DL 12 MG/DL Creatinine 1.43 MG/DL 1.37 MG/DL Random Glucose 140 MG/DL 146 MG/DL Calcium Level 7.7 MG/DL 8.1 MG/DL Sodium Level 137 MEQ/L 139 MEQ/L Potassium Level 3.4 MEQ/L 4.5 MEQ/L Chloride Level 108 MEQ/L 108 MEQ/L Carbon Dioxide Level 20.2 MEQ/L 24.3 MEQ/L Anion Gap 9 MEQ/L 7 MEQ/L Estimat Glomerular Filtration Rate 66 ML/MIN 69 ML/MIN Total Bilirubin 2.1 MG/DL Direct Bilirubin 0.7 MG/DL Indirect Bilirubin 1.4 MG/DL Aspartate Amino Transf (AST/SGOT) 31 U/L Alanine Aminotransferase (ALT/SGPT) 39 U/L Alkaline Phosphatase 148 U/L C-Reactive Protein 9.10 MG/DL Total Protein 6.4 GM/DL Albumin 2.6 GM/DL Lipase 204 U/L Microbiology Date/Time Source Procedure Growth Status 03/09/17 20:35 Blood Peripheral Aerobic Blood Culture - Preliminary NO GROWTH IN 2 DAYS Resulted 03/09/17 20:35 Blood Peripheral Anaerobic Blood Culture - Preliminary NO GROWTH IN 2 DAYS Resulted 03/09/17 20:29 Blood Peripheral Aerobic Blood Culture - Preliminary NO GROWTH IN 2 DAYS Resulted 03/09/17 20:29 Blood Peripheral Anaerobic Blood Culture - Preliminary NO GROWTH IN 2 DAYS Resulted 03/09/17 13:30 Blood Peripheral Aerobic Blood Culture - Preliminary NO GROWTH IN 2 DAYS Resulted 03/09/17 13:30 Blood Peripheral Anaerobic Blood Culture - Preliminary NO GROWTH IN 2 DAYS Resulted 03/09/17 13:20 Blood Peripheral Aerobic Blood Culture - Preliminary NO GROWTH IN 2 DAYS Resulted 03/09/17 13:20 Blood Peripheral Anaerobic Blood Culture - Preliminary NO GROWTH IN 2 DAYS Resulted 03/10/17 00:40 Sputum Expectorated Sputum Gram Stain - Final Resulted 03/10/17 00:40 Sputum Expectorated Sputum Sputum Culture - Preliminary HEAVY GROWTH NORMAL RESPIRATORY TRENT... Resulted 03/09/17 14:00 Nasal Washing Influenza Types A,B Antigen (JORDAN) - Final NEGATIVE FOR FLU A AND B ANTIGEN.... Complete 03/09/17 13:20 Throat Group A Streptococcus Screen - Final NO GP A BETA STREP ISOLATED. Complete 03/09/17 13:20 Throat Group A Streptococcus Screen (JORDAN) - Final Complete 03/09/17 14:15 Urine Clean Catch Legionella Antigen - Final PRESUMPTIVE NEGATIVE FOR LEGIONELLA P... Complete 03/09/17 14:15 Urine Clean Catch Streptococcus pneumoniae Antigen (M - Final PRESUMPTIVE NEGATIVE FOR STREPTOCOCCU... Complete 03/10/17 16:45 Wound Back Gram Stain - Final Resulted 03/10/17 16:45 Wound Back Wound Culture - Preliminary NO GROWTH IN 24 HOURS. Resulted PHYSICAL EXAMINATION GENERAL: No acute distress. HEENT: The head is atraumatic. Extraocular movements grossly intact, pupils reactive to light. No icterus. Oropharynx moist mucosa. No thrush. No visible lesions. NECK: Supple without adenopathy. LUNGS: Clear breath sounds with slight rhonchi at the bases. HEART: Regular S1-S2. No murmurs, rubs or gallops. ABDOMEN: Bowel sounds present, soft, no tenderness appreciated. No palpable hepatosplenomegaly. EXTREMITIES: No clubbing, cyanosis or edema. SKIN: Diffuse maculopapular rash involving the legs, arms, abdomen, pack and chest and neck still prominent but no progression. No involvement of palm or soles of feet. NEUROLOGIC: No gross focal findings. PSYCHIATRIC: Calm and cooperative. [place] screen negative. Group A strep antigen screen negative. IMPRESSION Febrile illness with diffuse erythematous rash accompanied by joint aches and muscle aches and pains. Probable viral syndrome versus autoimmune etiology versus post infectious rash and arthritis. RECOMMENDATIONS 1. Continue vancomycin. 2. Continue Steroid. Change to prednisone. 3. Monitor blood cultures. 4. Monitor temp and rash. 5. Follow culture of the pustules from the skin lesions on the back. If the fever normal x 48 hours and the rash is improving and cultures are negative, He can be discharged on PO prednisone taper and see a Hair Dryer as outpatient. Hardik Arias MD Mar 11, 2017 14:11
[2017-03-11] MEDS: predniSONE 20 MG TAB PO SCH (19:51)
[2017-03-12] VITALS (8 sets, daily range): BP systolic 108–130; BP diastolic 55–82; PULSE 59–77; RESP 16–20; TEMP 97–98.1; O2SAT 95–97
[2017-03-12] MEDS: HEPARIN SODIUM - SQ 10,000 UNITS/ML VIAL SQ SCH ×3 (01:00→16:20)
[2017-03-12] MEDS: RESP: ALBUTEROL 2.5 MG/IPRATROPIUM 0.5 MG NEB (SCH) INH ×3 (03:16→20:58)
[2017-03-12] MEDS: SODIUM CHLOR 0.9% 1000 ML INJ 1,000 ML IV SCH ×2 (04:48→14:48)
[2017-03-12] MEDS: VANCOMYCIN INJ 1,000 MG in SODIUM CHLOR 0.9% 250 ML INJ 250 ML IV SCH (05:32)
[2017-03-12] MEDS: SODIUM CHLORIDE 0.9% FLUSH 10 ML FLUSH IV FLUSH SCH ×2 (09:00→19:57)
[2017-03-12] MEDS: predniSONE 20 MG TAB PO SCH ×2 (09:45→19:57)
--- NOTE | 2017-03-12 14:05 | HHI.IDPN ---
Note Infectious Disease Note Patient feels much better. No complaints. Joint aches are gone. Denies chills. Temp better. Afebrile. Skin rash improving. RF positive. RPR - negative. Blood culture has no growth. Anti strep titer negative. Admitted with cold and flu-like symptoms and persistent fever. Began developing achiness of his body all over and then noticed a rash including his legs and abdomen and arms and back which began approximately 4 days before admission. PAST MEDICAL HISTORY Chicken pox in childhood otherwise unremarkable. ALLERGIES NO KNOWN DRUG ALLERGIES. Current Medications Medications (Trade) Dose Ordered Sig/Rigo Route PRN Reason Start Time Stop Time Status Last Admin Dose Admin Sodium Chloride 1,000 ml @ 100 mls/hr Q10H IV 03/09/17 16:48 03/11/17 18:48 Sodium Chloride (NS Flush) 2 ml UNSCH PRN IV FLUSH FLUSH AFTER USING IV ACCESS 03/09/17 17:00 Sodium Chloride (NS Flush) 2 ml BID IV FLUSH 03/09/17 21:00 03/10/17 21:22 Ondansetron HCl (Zofran Inj) 4 mg Q6H PRN IV PUSH NAUSEA 03/09/17 17:00 Albuterol/ Ipratropium (Duoneb Neb) 1 ampule Q6HR NEB INH 03/09/17 22:00 03/10/17 03:07 Albuterol/ Ipratropium (Duoneb Neb) 1 ampule Q4HR NEB PRN INH SHORTNESS OF BREATH 03/09/17 17:00 Guaifenesin/ Dextromethorphan (Robitussin Dm 200-20 Mg/10 ml Liq) 10 ml Q4H PRN PO COUGH 03/09/17 17:00 Heparin Sodium (Porcine) (Heparin Inj) 5,000 units Q8H SQ 03/09/17 17:00 03/09/17 19:15 Acetaminophen/ Hydrocodone Bitart ([place] 7.5-325 Mg) 1 tab Q4H PRN PO pain 6-10 03/09/17 18:45 03/10/17 13:05 Acetaminophen/ Hydrocodone Bitart ([place] 5-325 Mg) 1 tab Q4H PRN PO pain 3-5 03/09/17 18:45 Acetaminophen (Tylenol) 650 mg Q4HR PRN PO temp > 100.4 03/10/17 00:15 03/10/17 21:23 Vancomycin HCl 1000 mg/Sodium Chloride 250 ml @ 250 mls/hr Q12H IV 03/10/17 17:00 03/12/17 05:32 Prednisone (Deltasone) 20 mg BID PO 03/11/17 21:00 03/12/17 09:45 SOCIAL HISTORY The patient is . No tobacco, no alcohol. No illicit drugs. He has two children age 1 and 8 who are in good health. OBJECTIVE: Vital Signs Date Time Temp Pulse Resp B/P (MAP) Pulse Ox O2 Delivery O2 Flow Rate FiO2 03/12/17 12:00 98.1 59 16 113/71 (85) 97 03/12/17 09:51 96 03/12/17 08:00 97.8 73 16 108/55 (72) 96 03/12/17 03:16 95 03/12/17 00:00 97.5 62 17 130/82 (98) 96 03/11/17 20:00 96.5 60 17 124/84 (97) 95 03/11/17 19:54 Room Air 03/11/17 16:00 96.2 78 16 138/82 (100) 95 Laboratory Tests Test 03/11/17 04:36 Blood Urea Nitrogen 12 MG/DL Creatinine 1.37 MG/DL Random Glucose 146 MG/DL Calcium Level 8.1 MG/DL Sodium Level 139 MEQ/L Potassium Level 4.5 MEQ/L Chloride Level 108 MEQ/L Carbon Dioxide Level 24.3 MEQ/L Anion Gap 7 MEQ/L Estimat Glomerular Filtration Rate 69 ML/MIN Microbiology Date/Time Source Procedure Growth Status 03/09/17 20:35 Blood Peripheral Aerobic Blood Culture - Preliminary NO GROWTH IN 3 DAYS Resulted 03/09/17 20:35 Blood Peripheral Anaerobic Blood Culture - Preliminary NO GROWTH IN 3 DAYS Resulted 03/09/17 20:29 Blood Peripheral Aerobic Blood Culture - Preliminary NO GROWTH IN 3 DAYS Resulted 03/09/17 20:29 Blood Peripheral Anaerobic Blood Culture - Preliminary NO GROWTH IN 3 DAYS Resulted 03/10/17 00:40 Sputum Expectorated Sputum Gram Stain - Final Complete 03/10/17 00:40 Sputum Expectorated Sputum Sputum Culture - Final HEAVY GROWTH NORMAL RESPIRATORY TRENT Complete 03/09/17 14:00 Nasal Washing Influenza Types A,B Antigen ([place]) - Final NEGATIVE FOR FLU A AND B ANTIGEN.... Complete 03/11/17 17:30 Urine Clean Catch Legionella Antigen - Final PRESUMPTIVE NEGATIVE FOR LEGIONELLA P... Complete 03/11/17 17:30 Urine Clean Catch Streptococcus pneumoniae Antigen (M - Final PRESUMPTIVE NEGATIVE FOR STREPTOCOCCU... Complete 03/09/17 14:15 Urine Clean Catch Legionella Antigen - Final PRESUMPTIVE NEGATIVE FOR LEGIONELLA P... Complete 03/09/17 14:15 Urine Clean Catch Streptococcus pneumoniae Antigen (M - Final PRESUMPTIVE NEGATIVE FOR STREPTOCOCCU... Complete 03/10/17 16:45 Wound Back Gram Stain - Final Resulted 03/10/17 16:45 Wound Back Wound Culture - Preliminary RARE GROWTH NORMAL SKIN TRENT... Resulted PHYSICAL EXAMINATION GENERAL: No acute distress. HEENT: The head is atraumatic. Extraocular movements grossly intact, pupils reactive to light. No icterus. Oropharynx moist mucosa. No thrush. No visible lesions. NECK: Supple without adenopathy. LUNGS: Clear breath sounds. HEART: Regular S1-S2. No murmurs, rubs or gallops. ABDOMEN: Bowel sounds present, soft, no tenderness appreciated. EXTREMITIES: No clubbing, cyanosis or edema. SKIN: Diffuse maculopapular rash involving the legs, arms, abdomen, pack and chest and neck is fading. No involvement of palm or soles of feet. NEUROLOGIC: No gross focal findings. PSYCHIATRIC: Calm and cooperative. [place] screen negative. Group A strep antigen screen negative. IMPRESSION Febrile illness with diffuse erythematous rash accompanied by joint aches and muscle aches and pains. Probable viral syndrome versus autoimmune etiology versus post infectious rash with arthritis. RECOMMENDATIONS 1. Stop vancomycin. 2. Continue prednisone. 3. Follow the temps overnight. If the temp remains normal or low grade overnight discharge tomorrow on PO prednisone taper and see a Director Of Preclinical Research as outpatient. Hardik Arias MD Mar 12, 2017 14:05
--- NOTE | 2017-03-12 15:22 | HHI.PR ---
Subjective Remarks Feeling better. Denies any CP or worsening of SOB. No coughing. no joint pains. No nausea or vomiting. Lesions are improving. Objective Vitals Vital Signs Date Time Temp Pulse Resp B/P (MAP) Pulse Ox O2 Delivery O2 Flow Rate FiO2 03/12/17 12:00 98.1 59 16 113/71 (85) 97 03/12/17 09:51 96 03/12/17 08:00 97.8 73 16 108/55 (72) 96 03/12/17 03:16 95 03/12/17 00:00 97.5 62 17 130/82 (98) 96 03/11/17 20:00 96.5 60 17 124/84 (97) 95 03/11/17 19:54 Room Air 03/11/17 16:00 96.2 78 16 138/82 (100) 95 I/O 03/11/17 03/11/17 03/11/17 03/12/17 03/12/17 03/12/17 07:00 15:00 23:00 07:00 15:00 23:00 Intake Total 800 ml 620 ml 480 ml Output Total 500 ml Balance 300 ml 620 ml 480 ml Intake Oral 800 ml 620 ml 480 ml Output Urine Total 500 ml # Voids 4 2 # Bowel Movements 0 1 Result Diagram: 03/10/17 0850 03/11/17 0436 Imaging Last Impressions Liver Ultrasound 03/10/17 0000 Signed Impressions: Service Date/Time: Friday, March 10, 2017 12:35 - CONCLUSION: Negative study Kaleb Hirsch MD Head CT 03/09/17 1255 Signed Impressions: Service Date/Time: Thursday, March 09, 2017 13:30 - CONCLUSION: Negative for acute process. Jeremiah Perea MD FACR Chest X-Ray 03/09/17 1255 Signed Impressions: Service Date/Time: Thursday, March 09, 2017 13:16 - CONCLUSION: Right midlung airspace disease. Fidel Hernándze MD Objective Remarks GENERAL: This is a well-nourished, well-developed patient, in no apparent distress. SKIN: Multiple rounded papular skin rash no clearance anywhere, on the chest on the back and some on the upper arms HEAD: Atraumatic. Normocephalic. EYES: Extraocular motions intact. No scleral icterus. ENT: Nose without drainage. Airway patent. NECK: Trachea midline. CARDIOVASCULAR: Regular rate and rhythm without murmurs RESPIRATORY: Fair air entry bilaterally. No wheezes GASTROINTESTINAL: Abdomen soft, non-tender, nondistended. Positive bowel sounds MUSCULOSKELETAL: Extremities without edema. Pedal pulses appreciated NEUROLOGICAL: Awake and alert. Moves all extremity. Normal speech. A/P Assessment and Plan 42 years old male with admitted with Febrile illness with skin rash max 103, chest x-ray showed right middle lobe airspace disease, no significant respiratory symptoms, was treated w on Rocephin and Zithromax x 2 days. Pt also received zosyn then was switched to vanco by ID. RA + but RPR and Patient has no leukocytosis but positive left shift, both ESR CRP elevated, lactic acid, flu screening was negative. GC/Chlamydia/RPR neg. Pt started on prednisone and responding. Pt will need to f/u w derm and rheumatology as an outpatient. Pt also needs to establish care w PCP and he is aware. Encourage use of IS q1hr while awake. Febrile illness with skin rash of unsure etiology. Right mid lung airspace disease. Increased bilirubin and AST, liver ultrasound>> came back negative JULIAN- improving DVT prophylaxis Discharge Planning Monitor overnight and if afebrile or has low grade fever ok to d/c in AM on prednisone taper per ID. Sera Swain MD Mar 12, 2017 15:22
[2017-03-13] VITALS: BP 108/68; PULSE 60; RESP 20; TEMP 97.2; O2SAT 95
[2017-03-13] MEDS: HEPARIN SODIUM - SQ 10,000 UNITS/ML VIAL SQ SCH ×2 (01:00→09:23)
[2017-03-13] MEDS: RESP: ALBUTEROL 2.5 MG/IPRATROPIUM 0.5 MG NEB (SCH) INH ×2 (04:00→07:42)
[2017-03-13] MEDS: SODIUM CHLOR 0.9% 1000 ML INJ 1,000 ML IV SCH (04:24)
[2017-03-13 08:00] VITALS: BP 111/73; PULSE 53; RESP 16; TEMP 96.5; O2SAT 98
[2017-03-13] MEDS: predniSONE 20 MG TAB PO SCH (09:23)
[2017-03-13] MEDS ORDERED: PRED20 PO (11:35)
--- NOTE | 2017-03-13 11:36 | HHI.DS ---
Discharge Summary Admission Date Mar 09, 2017 at 16:50 Discharge Date: Mar 13, 2017 Admitting Diagnosis acute pneumonia, sepsis (1) JULIAN (acute kidney injury) ICD Code: N17.9 - Acute kidney failure, unspecified (2) Rash ICD Code: R21 - Rash and other nonspecific skin eruption (3) Rheumatoid arthritis ICD Code: M06.9 - Rheumatoid arthritis, unspecified (4) Febrile illness, acute ICD Code: R50.9 - Fever, unspecified Procedures none Brief History - From Admission 42 years old patient admitted with flulike symptoms fever and papular rash on the chest and the back, patient went to urgent care he was check for flu which was negative he also reported body aching and myalgia no change in mental status is fever was 103 documented here in ED patient denied chest in coughing headache blurry vision, nausea vomiting diarrhea, dysuria urgency or frequency, he denied recent traveling or sick contacts CBC/BMP: 03/10/17 0850 03/11/17 0436 Significant Findings Laboratory Tests Test 03/10/17 17:10 03/11/17 04:36 03/11/17 17:30 Rheumatoid Factor Screen POSITIVE (NEGATIVE) Rheumatoid Factor Titer 42.9 IU/ML (0.0-14.9) Creatinine 1.37 MG/DL (0.60-1.30) Random Glucose 146 MG/DL (74-106) Calcium Level 8.1 MG/DL (8.5-10.1) Chloride Level 108 MEQ/L (98-107) Estimat Glomerular Filtration Rate 69 ML/MIN (>89) PE at Discharge GENERAL: This is a well-nourished, well-developed patient, in no apparent distress. SKIN: Multiple rounded papular skin rash no clearance anywhere, on the chest on the back and some on the upper arms HEAD: Atraumatic. Normocephalic. EYES: Extraocular motions intact. No scleral icterus. ENT: Nose without drainage. Airway patent. NECK: Trachea midline. CARDIOVASCULAR: Regular rate and rhythm without murmurs RESPIRATORY: Fair air entry bilaterally. No wheezes GASTROINTESTINAL: Abdomen soft, non-tender, nondistended. Positive bowel sounds MUSCULOSKELETAL: Extremities without edema. Pedal pulses appreciated NEUROLOGICAL: Awake and alert. Moves all extremity. Normal speech. Pt update on day of discharge Pt feeling well. no cough, no chest congestion, no joint pains. no nausea or vomiting. states that he has "[employer] insurance" and can go f/u w his previous PCP Dr. Faye. He would prefer not to get any more lab draws today. He can f/u w him on wednesday or at least get the labwork then. Pt would like to go home today Hospital Course 42 years old male with admitted with Febrile illness with skin rash Tmax 103 on admission, chest x-ray showed right middle lobe airspace disease, no significant respiratory symptoms, was treated w on Rocephin and Zithromax x 2 days. Pt also received zosyn then was switched to vanco by ID. RA + Patient has no leukocytosis but positive left shift, both ESR CRP were elevated , lactic acid, flu screening were negative. GC/Chlamydia/RPR neg. Pt started on prednisone and responded well. He will be discharged on a prednisone taper over the course of 10 days. Pt will need to f/u w derm and rheumatology as an outpatient within 1-2 weeks. Pt also needs to establish care w new PCP due to insurance switch however he states that in the meantime he will f/u w his previous PCP under his [employer] insurance Dr. Faye. Script for BMP was ordered for him to monitor Cr levels as an outpatient w cc to Dr. Faye. Pt Condition on Discharge: Stable Discharge Disposition: Discharge Home Discharge Time: > 30 minutes Discharge Instructions Follow up Referrals: Dermatology - 2 Weeks PCP Follow-up - 1 Week Rheumatology - 2 Weeks New Orders: BASIC METABOLIC PROF - 03/16/17 New Medications: Prednisone (Prednisone) 20 Mg Tab 20 MG PO BID, #11 TAB take 20mg po bid x 3days then 10mg po bid x 3days then 10mg po qAM x 2days then 5mg po qAM x 2days Sera Swain MD Mar 13, 2017 11:36
[2017-03-13 12:00] VITALS: BP 123/73; PULSE 51; RESP 16; TEMP 97.6; O2SAT 97
== END 2017-03-13 12:39 | disposition home or self-care (01) | DRG 864 ==
LOC: NEPE 12:38 → NEDA 15:45 → OBSVTOIN 16:50 → N07B 17:25
PROVIDERS: ADMIT Hospitalist; ATTEND Hospitalist
DX: R50.9 Fever, unspecified (principal); N17.9 Acute kidney failure, unspecified; R91.8 Other nonspecific abnormal finding of lung field; R21 Rash and other nonspecific skin eruption; M25.512 Pain in left shoulder; M06.9 Rheumatoid arthritis, unspecified; M25.511 Pain in right shoulder; M25.562 Pain in left knee; M25.561 Pain in right knee; M25.532 Pain in left wrist; M25.531 Pain in right wrist; M43.6 Torticollis
CPT/HCPCS: 70450; 71010; 76705; 80048; 80076; 81001; 83605; 83690; 83735; 85025; 85610; 85652; 85730; 86140; 86308; 86403; 86430; 86592; 87040; 87070; 87081; 87205; 87449; 87491; 87591; 87804; 87880; 94150; 94640; 94664; 96360; 96361; J0456; J0696; J1644; J1885; J2920; J3370; J7030; J7050; J7512